=== PATIENT | female | born 1995 | race Caucasian/White ===

== ENCOUNTER 2018-05-15 01:04 | Observation (INO) ==
[2018-05-15 02:04] LABS: Amphetamine Screen,Urine Negative ng/mL (Cutoff=1000); Barbiturate Screen,Urine Negative ng/mL (Cutoff=200); Benzodiazepines Screen,Urine Negative ng/mL (Cutoff=200); Cannabinoid Screen,Urine Negative ng/mL (Cutoff = 50); Cocaine Screen,Urine Negative ng/mL (Cutoff= 300); Opiate Screen,Urine Negative ng/mL (Cutoff=300); Phencyclidine Screen,Urine Negative ng/mL (Cutoff=25)
[2018-05-15] MEDS ORDERED: Famotidine 20 MG TABLET PO ONE (04:17)
--- NOTE | 2018-05-19 10:06 | OB/GYN Progress Note ---
Date of Encounter: 05/15/18 Time of Encounter: 02:00 - Assessment and Plan (1) Fall (on) (from) other stairs and steps, initial encounter Status: Acute extended monitoring Discharge home with labor precautions Follow up with routine care and prn (2) 38 weeks gestation of Status: Acute (3) NST (non-stress test) reactive Status: Acute Subjective - Subjective Principal diagnosis: Fall Interval history: Patient is 38 weeks. Positive blood type. Fell down the stairs on her bottom and denies hitting her abdomen. She denies cramping, leaking of fluid, vaginal bleeding, contractions, and pain. Objective - Exam FHR: auscultation normal, category 1 (130 baseline no contractions reactive NST) Abdomen: Present: soft, gravid Uterus: Present: normal. Absent: firm
== END 2018-05-15 05:45 | disposition home or self-care (01) ==
LOC: 1NENULAB
PROVIDERS: ADMIT Advanced Practice Midwife; ATTEND Advanced Practice Midwife

== ENCOUNTER 2018-06-02 05:57 | Inpatient (IN) ==
[2018-06-02] MEDS ORDERED: Naloxone 0.4 MG/ML INJ IVP PRN (06:06)
[2018-06-02] MEDS ORDERED: *HR* Nalbuphine 10 MG/ML AMPUL IVP PRN (06:06)
[2018-06-02] MEDS ORDERED: Famotidine 20 MG/2 ML VIAL IVP PRN (06:06)
[2018-06-02] MEDS ORDERED: Penicillin G Potassium 5,000,000 UNIT in 0.9 % Sodium Chloride Mini Bag 100 ML IVPB ONE (06:08)
[2018-06-02] MEDS ORDERED: Oxytocin 20 units/ LR 1000 mL 20 UNIT/1,000 ML BAG IVC SCH (06:15)
[2018-06-02] MEDS ORDERED: Ringers Solution, Lactated 1,000 ML IVC SCH (06:15)
[2018-06-02 06:28] LABS: Basophils % 0.3 %; Eosinophils # 0.1 K/mcL (0.0-0.6); Eosinophils % 0.6 %; Hematocrit 36.5 % (35.3-44.9); Hemoglobin 12.2 g/dL (11.5-15.4); Immature Granulocytes % 0.6 % (0-4); Lymphocytes # 2.8 K/mcL (0.6-4.6); Lymphocytes % 25.4 %; Mean Corpuscular HGB Conc 33.4 g/dL (31.6-35.5); Mean Corpuscular Hemoglobin 29.3 pg (28.0-33.3); Mean Corpuscular Volume 87.5 fL (83.0-100.0); Mean Platelet Volume 10.7 fL (9.4-12.4); Monocytes # 0.8 K/mcL (0.0-1.3); Neutrophils # 7.2 K/mcL (1.6-8.9); Platelet Count 175 K/mcL (140-400); Red Blood Count 4.17 M/mcL (3.82-4.97); Red Cell Distribution Width 13.1 % (11.5-14.5); Segmented Neutrophils % 66.1 %
[2018-06-02] MEDS ORDERED: miSOPROStol 25 MCG TABLET PO ONE (06:31)
[2018-06-02 06:33] LABS: Amphetamine Screen,Urine Negative ng/mL (Cutoff=1000); Barbiturate Screen,Urine Negative ng/mL (Cutoff=200); Benzodiazepines Screen,Urine Negative ng/mL (Cutoff=300)
[2018-06-02 06:34] LABS: Cannabinoid Screen,Urine Negative ng/mL (Cutoff = 50); Cocaine Screen,Urine Negative ng/mL (Cutoff= 300); Opiate Screen,Urine Negative ng/mL (Cutoff=300); Phencyclidine Screen,Urine Negative ng/mL (Cutoff=25)
--- NOTE | 2018-06-02 09:07 | OB/GYN History & Physical ---
Date of Encounter: 06/02/18 Time of Encounter: 08:30 Assessment and Plan (1) 40 weeks gestation of Current visit: Yes Status: Acute (2) Primiparity Current visit: Yes Status: Acute Qualifiers: Trimester: third trimester Qualified Code(s): Z34.03 - Encounter for supervision of normal first , third trimester (3) Elective induction of labor planned Current visit: Yes Status: Acute She received cytotec at 0600. Attempt to put in transcervical ramirez was unsuccessful. Will wait 4 hours and begin pitocin if not april adequately from the PO cytotec. History of Present Illness Chief complaint: Induction of labor HPI: Ms. Cantu is a 23 year old female G 1 at 40 4/7 weeks presents to labor and delivery for induction of labor for postdates. She has not had any contractions, vaginal bleeding, or leaking fluid. She reports good movement. Her has been uncomplicated. Past Med Surg Social Fam HX - Past Medical History Source: patient Medical history: non-contributory Psychiatric history: anxiety - Past Surgical History Surgical History: non-contributory Additional surgical history: wisdom teeth - Social History Smoking Status: Never smoker Smokeless Tobacco Status: No Alcohol use: none Drug use: none Occupational status: student - Family History Father Family Member Ethnicity: Non- Living Status: Still Living Hx Family Cardiac Disorders: No Hx Family Respiratory Disorders: No Hx Family Cancer: No Hx Family Medical Disorders: Yes (dementia) Obstetrical History - Pregnancies : 1 Medications and Allergies Famotidine [Pepcid] 1 tab PO BID 05/15/18 [History] Vits96/Iron Fum/Folic [ Tablet] 1 tab PO DAILY 05/15/18 [History] Allergy/AdvReac Type Severity Reaction Status Date / Time Sulfa (Sulfonamide AdvReac Hives Verified 06/02/18 06:03 Antibiotics) Review of System OB All systems PM: reviewed and no additional remarkable complaints except as stated - Constitutional Constitutional ROS IM: no chills, no fever(s), no weight loss - Gastrointestinal Gastrointestinal: cramping, no abdominal pain, no nausea, no vomiting - Menstruation Menstruation: amenorrhea, no currently menstrual Exam - Constitutional Constitutional: well developed, well nourished, no acute distress, average body habitus - HEENT HEENT: Mucus Membranes Moist - Lungs Respiratory exam: CTAB - Cardiovascular Cardiovascular exam: RRR - Abdomen Abdomen: Present: bowel sounds normal, gravid, non tender - Vulva Vulva: bilateral: normal - Vagina Vagina: Present: normal moisture, discharge - Cervix Dilation: 1 Effacement: 75 Station: -3 - Anus/Rectum Anus/Rectum: Present: normal perianal skin Results Result Diagrams: 06/02/18 06:14 All other labs normal. US - abdomen: image reviewed (3429 gm on 05/25 with adequate fluid) - VTE Reasons for not Prescribing Prophylaxis: Treatment not Indicated - Low risk for VTE
[2018-06-02] MEDS: Penicillin G Potassium 2,500,000 UNIT in 0.9 % Sodium Chloride 100 ML IVPB SCH ×4 (10:16→22:49)
--- NOTE | 2018-06-02 13:09 | OB Labor Progress Note ---
Date of Encounter: 06/02/18 Time of Encounter: 13:03 Labor Progress Note - Subjective Subjective: Patient seen and examined. She denies any concerns or complaints right now. She is having some back pain. - Cervix Cervix: 1.5/80/-3 - Heart Tones Heart Tones: category 1 - [place]: infrequent contractions, pitocin increased to 4 milliunits/minute - Plan Plan: Continue to increase Pitocin to achieve adequate labor
--- NOTE | 2018-06-02 18:51 | Anesthesia Evaluation PreOp ---
Date of Encounter: 06/02/18 Time of Encounter: 18:49 - Past History Planned Operation: justin Cardiac History: Denies any Significant Hx Pulmonary History: Denies Any Significant HX EXCEPTIONAL STUDENT EDUCATION AIDE History: Denies Any Significant HX Other Medical History: GERD Anesthesia History: No Prior Anesthetic Complications, Past Anesthesia (ear) : Yes Test: Positive Alcohol Use: none Drug use: none Medications and Allergies Famotidine [Pepcid] 1 tab PO BID 05/15/18 [History] Vits96/Iron Fum/Folic [ Tablet] 1 tab PO DAILY 05/15/18 [History] Allergy/AdvReac Type Severity Reaction Status Date / Time Sulfa (Sulfonamide AdvReac Hives Verified 06/02/18 06:03 Antibiotics) - Meds/Allergy Pre-op Review Medications Reviewed: Yes Allergies Reviewed: Yes Beta Blockers on Current Med List: No Anesthesia Results - Labs 06/02/18 06:14 Anesthesia Exam 111/64 88 fht 139 Height: 5'2" Weight: 91 k NPO (# of Hours): 2 Pain Scale: 4 Pain Scale Used: Numeric (1 - 10) - HEENT Mallampati: II Teeth: Normal Oral Opening: Greater than 3 - EXCEPTIONAL STUDENT EDUCATION AIDE LOC: Oriented EXCEPTIONAL STUDENT EDUCATION AIDE Motor: Normal RUE, Normal LUE, Normal RLE, Normal LLE, Normal Face EXCEPTIONAL STUDENT EDUCATION AIDE Sensory: Normal: RUE, LUE, RLE, LLE, Face - Cardiac Rhythm: Regular Murmur: None - Pulmonary Breath Sounds: bilateral Clear Respiratory Effort: Symmetrical Anesthesia Assess/Plan ASA Score: 2 Level of consciousness: Cooperative Anesthetic Plan: Epidural Autologous Blood: No Monitoring Plan: Standard Monitors Recovery Plan: Other (risks discussed questions answered, consented)
[2018-06-02] MEDS ORDERED: *HR* FentaNYL (PF) 100 MCG/2 ML VIAL EP ONE (18:52)
[2018-06-02] MEDS ORDERED: Lidocaine -MPF 2% 5 ML VIAL ONE (18:54)
[2018-06-02] MEDS ORDERED: *HR* FentaNYL (PF) 100 MCG/2 ML VIAL ONE (18:54)
[2018-06-02] MEDS ORDERED: Epidural Premix (fent/bupiv) 110 ML EP SCH (19:00)
--- NOTE | 2018-06-02 19:43 | OB Labor Progress Note ---
Date of Encounter: 06/02/18 Time of Encounter: 19:00 Labor Progress Note - Subjective Subjective: Patient denies any complaints. She is a little more uncomfortable with contractions. - Cervix Cervix: 2/70/-3 - Heart Tones Heart Tones: category 1 - [place]: q 2 minutes - Interventions Interventions: AROM with clear fluid. IUPC placed without difficulty. - Plan Plan: Continue pitocin induction
--- NOTE | 2018-06-02 20:56 | Anesthesia Procedures ---
Addendum entered and electronically signed by Elian Avery CRNA 06/04/18 03:07: labor epidural changed to surgical at 0115 Original Note: Date of Encounter: 06/02/18 Time of Encounter: 20:54 Procedures: Anesthesia - Epidural/Spinal Patient ID/Chart reviewed: Yes Patient examined: Yes OB Eval: Gestational age: 40 OB Eval: : 1 OB Eval: Hx Para: 0 OB Eval: Dilated at (cm): 3 OB Eval: Contractions: Non-stressed pattern Consent Obtained: Yes Supplemental Oxygen: None/Room Air Site Prep: Aseptic Technique, Sterile prep and drape, Povidone-Iodine 1% Patient position: upright Local Anesthetic: Lidocaine 1% Amount of Local Anesthetic used: 3 Touhy Needle Gauge: 18 Touhy Needle Depth (cm): 8 Catheter Depth at Skin (cm): 20 Test Dose (1.5% Lido + Epi): Volume given (mls): 3 Test Dose Result: Negative Loading Dose: Fentanyl (mcg): 100 Loading Dose: Other: rop 0.2%10 cc Loading Dose Administered: Thru Touhy Needle Infusion Med: 0.125% Bupivacaine w/ 2 mcg/ml Fentanyl Infusion Rate (mls/hr): 15 (pcea 5cc q30") Catheter Secured in Place: Tegaderm Interspace Used: L2-L3 Loss of Resistance (SUZI): Yes Blood: No CSF: No Paresthesia: No Procedure: aseptic, feliciano well, VSS, effective Vitals + FHT's: 123/76 88 fht 144
--- NOTE | 2018-06-02 22:31 | OB Labor Progress Note ---
Date of Encounter: 06/02/18 Time of Encounter: 22:24 Labor Progress Note - Interventions Interventions: I was called and notified that pitocin was discontinued for "late and early" decelerations. I have reviewed the strip and patient has moderate variablity with early decelerations. I have instructed nursing staff to restart pitocin with a new bag at 2 mUnits/minute with the external toco in place. - Plan Plan: With moderate variability and spontaneous accelerations, restart the pitocin after 30 minute rest
[2018-06-03] MEDS ORDERED: Famotidine 20 MG TABLET PO SCH (00:30)
[2018-06-03] MEDS: Penicillin G Potassium 2,500,000 UNIT in 0.9 % Sodium Chloride 100 ML IVPB SCH ×4 (02:57→15:09)
[2018-06-03] MEDS ORDERED: Ondansetron 4 MG/2 ML VIAL IVP SCH (06:00)
[2018-06-03] MEDS ORDERED: *HR* Ropivacaine/PF 0.2% 20 ML VIAL ONE (08:22)
--- NOTE | 2018-06-03 09:28 | OB Labor Progress Note ---
Date of Encounter: 06/03/18 Time of Encounter: 09:26 Labor Progress Note - Subjective Subjective: Patient reports low back pain. - Cervix Cervix: 6/100/+1 - Heart Tones Heart Tones: 125 bpm moderate variability +15x15 accels no decels noted. Cat. 1 tracing - [place]: 3-4 min apart - Interventions Interventions: SVE, New IUPC placed without difficulty. Patient tolerated well. - Plan Plan: Continue labor management Dr. Weber updated on labor status.
--- NOTE | 2018-06-03 13:15 | OB Labor Progress Note ---
Date of Encounter: 06/03/18 Time of Encounter: 13:12 Labor Progress Note - Subjective Subjective: Patient resting in bed. - Cervix Cervix: 6.5/100/-1 - Heart Tones Heart Tones: 125 bpm moderate variability +15x15 accels noted. - [place]: 3-3.5 min apart - Interventions Interventions: SVE, Patient repositioned. Pitocin increased at this time to [address] Weber updated on SVE and EFM - Plan Plan: Continue labor management
--- NOTE | 2018-06-03 14:17 | Event Note ---
Date of Encounter: 06/03/18 Time of Encounter: 14:20 At bedside to evaluate patient for failed IOL. AROM'd yesterday evening, prior checks noted to have caput. Concern for inability to adequate achieve labor given IV pitocin protocol and not being able to adequately keep on the pitocin. SVE performed, /-1. Hard anterior lip, baby appears to be in the OP position. This is a change from her prior cervical check. Will continue with IV pitocin as able and attempt to rotate the baby once completely dilated. RN and CNM at bedside regarding the above. Peanut ball to be used with patient for rotation. MD RAMIREZ
[2018-06-03] MEDS ORDERED: *HR* Ropivacaine/PF 0.5% 20 ML VIAL ONE (19:27)
[2018-06-03] MEDS ORDERED: Simethicone 80 MG TAB.CHEW PO PRN (20:25)
[2018-06-03] MEDS ORDERED: Acetaminophen 325 MG TABLET PO ONE (22:04)
--- NOTE | 2018-06-03 23:59 | OB Labor Progress Note ---
Date of Encounter: 06/03/18 Time of Encounter: 16:20 Labor Progress Note - Subjective Subjective: Patient doing well. Denies pain at this time. Discussed POC with patient. Patient denies any questions or concerns. - Cervix Cervix: 8/100/0 - Heart Tones Heart Tones: 145 bpm moderate variability +15x15 accels no decels noted. Cat. 1 - [place]: 3-4 min apart - Interventions Interventions: SVE, repositioned - Plan Plan: Dr. Weber to resume care of patient due to prolonged rupture of membranes and prolonged transition phase of labor. Patient aware of potential for c/s and transfer of care to Dr. Weber.
[2018-06-04] MEDS ORDERED: Metoclopramide 10 MG/2 ML VIAL IVP STA (00:37)
[2018-06-04] MEDS ORDERED: Famotidine 20 MG/2 ML VIAL IVP ONE (00:39)
[2018-06-04] MEDS ORDERED: CeFAZolin Premix DUPLEX 2,000 MG/50 ML BAG IVPB ONE (00:39)
[2018-06-04] MEDS ORDERED: Metoclopramide 10 MG/2 ML VIAL IVP ONE (00:39)
[2018-06-04] MEDS ORDERED: Ringers Solution, Lactated 1,000 ML IVC ONE (00:39)
[2018-06-04] MEDS ORDERED: Oxytocin 20 units/ LR 1000 mL 20 UNIT/1,000 ML BAG IVC ONE (00:39)
[2018-06-04] MEDS ORDERED: Oxytocin 20 units/ LR 1000 mL 20 UNIT/1,000 ML BAG IVC SCH ×3 (00:45→05:27)
[2018-06-04] MEDS ORDERED: Ringers Solution, Lactated 1,000 ML IVC SCH ×2 (00:45→05:27)
--- NOTE | 2018-06-04 00:45 | Event Note ---
Date of Encounter: 06/04/18 Time of Encounter: 00:41 At bedside to evaluate patient for proceed toward . Attempted to rotate from direct OP position after confirmation of position by ultrasound. rotated to LOT. Cervix unchanged after rotation x1 hr. Rescanned and patient back to direct OP. Ruptured for >24hr. No cervical change for over three cervical check(S). Knot at anterior lip still appreciated. Discussed risks of delivery, and also discussed the appropriate indication for primary LTCS. Discussed with asynclitic presentation. Consent signed with patient. Will proceed with primary LTCS. MD DENIS
[2018-06-04] MEDS ORDERED: Lidocaine/EPI 1:200k 2% PF 20 ML VIAL ONE (00:55)
[2018-06-04] MEDS ORDERED: *HR* FentaNYL (PF) 100 MCG/2 ML VIAL ONE (00:55)
[2018-06-04] MEDS ORDERED: Ringers Solution, Lactated 1,000 ML ONE (00:56)
[2018-06-04] MEDS ORDERED: *HR* Oxytocin 10 UNIT/ML VIAL IM ONE ×2 (01:04→05:27)
[2018-06-04] MEDS ORDERED: *HR* Phenylephrine 10 MG/ML VIAL ONE (01:06)
[2018-06-04] MEDS ORDERED: Ondansetron 4 MG/2 ML VIAL ONE (01:54)
[2018-06-04] MEDS ORDERED: *HR* Morphine Sulfate/PF 10 MG/10 ML AMPUL ONE (01:58)
--- NOTE | 2018-06-04 02:58 | OB/GYN Procedure Note ---
Section - Date of procedure: 06/04/18 Preop diagnosis: arrest of descent, other malpresentation Post-op diagnosis: same Procedure: section, primary low transverse Surgeon: Heike Coffey Quantitated Blood Loss: 600 Was there an dental chairside assistant present: No Anesthesia Type: Epidural section complications: none Disposition: L&D Recovery Room Specimens: Placenta, Cord blood - Narrative Narrative: OPERATIVE REPORT DATE: 06/04/2018 PROCEDURE: PRIMARY LOW TRANSVERSE DELIVERY PREOPERATIVE DIAGNOSIS: FAILED INDUCTION OF LABOR AT TERM MALPRESENTATION: OCCIPUT POSTERIOR ARREST OF DECENT EBL: 600ML POSTOPERATIVE DIAGNOSIS: SAME SURGEON: HEIKE COFFEY MD 23yo at 40+6wks who presented for scheduled IOL at term. Uncomplicated . Patient had a prolonged labor induction, beginning 06/03 PM. The patient was augmented with misoprostol, ramirez, IV pitocin, AROM. Her labor was complicated by intermittent impediment of the IV pitocin secondary to NRFWB. The patient continued to make cervical change until the PM of 06/04. The patient stalled over 6hr period, as baby was found to be in the direct OP position at 9CM with a thickened anterior lip. Attempt at rotation was unsuccessful. The patient was consented for a primary low transverse delivery. Risks including but not limited to blood loss, injury to bowel and bladder, and hysterectomy were discussed. The patient consented fully to the procedure. The patient was then taken to the OR where spinal anesthesia was found to be adequate. She was then draped in the usual sterile fashion. Time out was performed and the team confirmed the diagnosis, indication for procedure, and patient information. A pfannenstiel skin incision was then made and carried down to the level of the fascia. We incised/scored the midline of the fascia and extended the fascia incision laterally using curved dinh scissors. Kerwin clamps were then used to tent the fascia inferiorly and superiorly, as the rectofascial plane was . We then bluntly entered the abdomen and peritoneal fluid was appreciated. The bladder blade was then placed showing adequate visibility of the lower uterine segment. The bladder reflection was appreciated and a bladder flap was then created. A hysterotomy was then made superiorlY to the flap, making note of the station being ~0. Infant was found to be in the vertex presentation with an appreciable about of caput. Vaginal hand was required to assist in bringing the head to the level of the hysterotomy. Once the occiput was brought to the lower uterine segment, the fetus rotated having a facial presentation at the level of the hysterotomy. A vacuum was called for (Kiwi) and a RIGHT maylard incision was made along the rectus muscle. One pop off was performed, as the second placement allowed for delivery with adequate fundal pressure. The was stunned, as the cord was immediately clamped and cut and handed to the warmer. We then turned our attention to the uterus were there were a ppreciable extensions bilaterally along the angles of the hysterotomy. Using 0- vicryl, we repaired the lower uterine segment hysterotomy. We did require multiple midline figure of eight sutures to ensure adequate hemostasis. Urine was confirmed to be yellow/clear by anesthesia at this time. We then returned the uterus to the abdomen and again, we appreciated hemostasis. We prophylactically used Tom for further assurance for hemostasis. Bilateral abdominal gutters were cleared with lap sponges. We then examined the underside of the superior and inferior fascial edges before closing the fascia using 0-vicryl. Fascia was closed in a running locked fashion. We irrigated the subcutaneous tissue and closed the subcutaneous fat with plain gut simple interrupted sutures. Skin was closed using 4-0 vicryl in the running fashion. Hemostasis was appreciated. Sterri strips, telpha and tegaderm was then used as her dressing. Counts were correct x3. OF NOTE: There were bilateral uterine extension(S) appreciated due to the station and size. measured 8#12oz, and was in the occiput posterior position. Repair was uncomplicated as there were no cervical extension(s). MD DENIS
[2018-06-04] MEDS ORDERED: *HR* Promethazine 25 MG/ML VIAL IVP PRN (02:59)
[2018-06-04] MEDS ORDERED: *HR* HYDROmorphone (PF) 1 MG/ML SYRINGE IVP PRN ×3 (02:59→05:27)
[2018-06-04] MEDS ORDERED: Acetaminophen IV 1,000 MG/100 ML INFUS..BTL IVPB ONE (02:59)
[2018-06-04] MEDS ORDERED: *HR* Meperidine 25 MG/ML SYRINGE IVP PRN (02:59)
--- NOTE | 2018-06-04 03:07 | Anesthesia Evaluation Post Op ---
Date of Encounter: 06/04/18 Time of Encounter: 03:02 - Vital Signs Vital Signs: vss, temp elevated team aware. - Airway Airway: Non-obstructed - Mental Status Mental Status: Alert & Oriented, Answers Appropriately - Pain Pain Scale used: Hairston-Harley (Faces) - Nausea Vomiting Nausea Vomiting: Not Present - Hydration Hydration: Hamilton catheter - Discharge PostOp Status: Transfer Patient to floor
[2018-06-04] MEDS ORDERED: Sennosides 8.6 MG TABLET PO PRN (05:27)
[2018-06-04] MEDS ORDERED: Simethicone 80 MG TAB.CHEW PO PRN (05:27)
[2018-06-04] MEDS ORDERED: Metoclopramide 10 MG/2 ML VIAL IVP PRN (05:27)
[2018-06-04] MEDS ORDERED: Ondansetron 4 MG/2 ML VIAL IVP PRN (05:27)
[2018-06-04] MEDS ORDERED: Acetaminophen 325 MG TABLET PO PRN (05:27)
[2018-06-04] MEDS: Famotidine 20 MG TABLET PO SCH ×2 (08:39→16:20)
[2018-06-04] MEDS: Prenatal Vit/FA 1 EACH TABLET PO SCH (08:39)
[2018-06-04] MEDS ORDERED: Prenatal Vit/FA 1 EACH TABLET PO SCH (09:00)
[2018-06-04] MEDS: Ibuprofen 600 MG TABLET PO PRN ×2 (11:24→18:31)
[2018-06-04] MEDS ORDERED: Gentamicin 90 MG in 0.9 % Sodium Chloride 100 ML IVPB ONE (13:21)
[2018-06-04] MEDS: Clindamycin 600 MG/50 ML 600 MG/50 ML IV.SOLN IVPB SCH ×2 (15:39→22:50)
[2018-06-04] MEDS: *HR* OxyCODONE/APAP 5/325 TABLET PO PRN (21:41)
[2018-06-05] MEDS: Ibuprofen 600 MG TABLET PO PRN ×4 (00:40→20:34)
[2018-06-05] MEDS: *HR* OxyCODONE/APAP 5/325 TABLET PO PRN (04:36)
[2018-06-05 04:53] LABS: Basophils % 0.1 %; Eosinophils % 0.1 %; Hematocrit 30.1 % (35.3-44.9); Immature Granulocytes % 0.8 % (0-4); Lymphocytes # 1.3 K/mcL (0.6-4.6); Lymphocytes % 7.4 %; Mean Corpuscular HGB Conc 33.9 g/dL (31.6-35.5); Mean Corpuscular Hemoglobin 29.3 pg (28.0-33.3); Mean Corpuscular Volume 86.5 fL (83.0-100.0); Mean Platelet Volume 10.5 fL (9.4-12.4); Monocytes % 5.5 %; Neutrophils # 14.9 K/mcL (1.6-8.9); Platelet Count 165 K/mcL (140-400); Red Blood Count 3.48 M/mcL (3.82-4.97); Red Cell Distribution Width 13.4 % (11.5-14.5); Segmented Neutrophils % 86.1 %
[2018-06-05 05:05] LABS: Hemoglobin 10.2 g/dL (11.5-15.4)
[2018-06-05] MEDS: Clindamycin 600 MG/50 ML 600 MG/50 ML IV.SOLN IVPB SCH ×3 (07:02→22:30)
[2018-06-05] MEDS: Famotidine 20 MG TABLET PO SCH ×2 (07:03→15:37)
--- NOTE | 2018-06-05 08:40 | OB/GYN Progress Note ---
Date of Encounter: 06/05/18 Time of Encounter: 08:39 - Assessment and Plan (1) delivery delivered Current Visit: Yes Status: Acute Continue routine / postop care Anticipate discharge home tomorrow Subjective - Subjective Principal diagnosis: section Interval history: S/P delivery day 1 Pain well controlled Lochia light without clots VSS Tolerating regular diet Passing flatus and urinating without difficulty Discharge home tomorrow Patient reports: appetite normal, voiding normally, pain well controlled, ambulating normally [place]: doing well, nursing well Objective - Vital Signs Latest vital signs: Vital Signs Temp Pulse Resp BP Pulse Ox 06/05/18 08:33 98.8 F 115 14 109/69 96 06/05/18 03:45 98.4 F 105 20 108/72 97 06/05/18 01:13 98.8 F 106 20 120/73 96 06/04/18 23:06 99.4 F 06/04/18 21:20 99.9 F H 106 20 104/68 98 06/04/18 18:03 97.9 F 93 20 112/75 97 06/04/18 15:50 98.4 F 102 20 110/78 95 06/04/18 14:00 99.4 F 110 17 98/60 95 06/04/18 13:00 101.5 F H 119 20 123/77 95 06/04/18 11:20 100.2 F H 108 20 113/73 95 Intake and Output 06/04/18 06/05/18 06/05/18 23:59 07:59 15:59 Intake Total 740 / 740 Output Total 700 / 700 Balance 40 / 40 Intake: IV Fluids 100 / 100 Cleocin Premix 600 MG/50 ML 600 100 / 100 mg In 50 ml @ 50 mls/hr IVPB Q8H [facility] Rx#:[id number] Oral 640 / 640 Output: Urine 700 / 700 Other: Meal Dinner Percent of Meal Consumed 80% - Exam Lungs: bilateral: normal Chest: Normal S1, Normal S2 Extremities: Present: normal Abdomen: Present: normal appearance, soft, gravid Incision: Present: normal, dry (dressing c/d/i), intact Uterus: Present: normal, firm Fundal Height: 0 (@ U) - Labs Labs: Laboratory Results - last 24 hr 06/05/18 04:35 WBC 17.3 H D RBC 3.48 L Hgb 10.2 L D Hct 30.1 L MCV 86.5 MCH 29.3 MCHC 33.9 RDW 13.4 Plt Count 165 MPV 10.5 Immature Gran % 0.8 Seg Neutrophils % 86.1 Lymphocytes % 7.4 Monocytes % 5.5 Eosinophils % 0.1 Basophils % 0.1 Neutrophils # 14.9 H Lymphocytes # 1.3 Monocytes # 1.0 Eosinophils # 0.0 Basophils # 0.0
[2018-06-05] MEDS: Prenatal Vit/FA 1 EACH TABLET PO SCH (11:08)
[2018-06-06] MEDS: Ibuprofen 600 MG TABLET PO PRN ×2 (03:25→09:38)
[2018-06-06] MEDS: Clindamycin 600 MG/50 ML 600 MG/50 ML IV.SOLN IVPB SCH (06:26)
[2018-06-06 06:43] LABS: Basophils % 0.3 %; Eosinophils # 0.2 K/mcL (0.0-0.6); Eosinophils % 1.1 %; Hematocrit 30.4 % (35.3-44.9); Hemoglobin 10.2 g/dL (11.5-15.4); Immature Granulocytes % 0.5 % (0-4); Lymphocytes # 2.9 K/mcL (0.6-4.6); Mean Corpuscular HGB Conc 33.6 g/dL (31.6-35.5); Mean Corpuscular Hemoglobin 29.2 pg (28.0-33.3); Mean Corpuscular Volume 87.1 fL (83.0-100.0); Mean Platelet Volume 10.4 fL (9.4-12.4); Monocytes # 0.9 K/mcL (0.0-1.3); Monocytes % 5.6 %; Neutrophils # 11.2 K/mcL (1.6-8.9); Platelet Count 220 K/mcL (140-400); Red Blood Count 3.49 M/mcL (3.82-4.97); Red Cell Distribution Width 13.4 % (11.5-14.5); Segmented Neutrophils % 73.5 %
[2018-06-06] MEDS: Famotidine 20 MG TABLET PO SCH (07:13)
[2018-06-06] MEDS: Prenatal Vit/FA 1 EACH TABLET PO SCH (07:13)
[2018-06-06 07:20] VITALS: BP 99/52
--- NOTE | 2018-06-06 09:53 | Discharge Summary ---
Date of Encounter: 06/06/18 Time of Encounter: 09:51 - Discharge Diagnosis (1) Breast feeding status of mother Priority: Secondary Status: Acute Comments: support prn (2) delivery delivered Priority: Primary Status: Acute Comments: Continue routine postop/ care discharge home today follow up with Dr. Weber in 2 weeks for incision check Follow up with Dr. New in 6 weeks - Discharge Medications Prescriptions: OxyCODONE/APAP 5/325 [Percocet 5/325 MG] 1 each PO Q4HR PRN 5 Days #28 tablet PRN Reason: Moderate pain 4-6 Ibuprofen [Motrin] 600 mg PO Q6HR PRN #60 tablet PRN Reason: Cramping Breast Pump [BREAST PUMP] 1 each .ROUTE AD #1 each Cephalexin [Keflex] 500 mg PO BID 7 Days #14 capsule Docusate [Colace] 100 mg PO BID #60 capsule Home Medications: Breast Pump [BREAST PUMP] 1 each .ROUTE AD #1 each 06/06/18 [Rx] Cephalexin [Keflex] 500 mg PO BID 7 Days #14 capsule 06/06/18 [Rx] Docusate [Colace] 100 mg PO BID #60 capsule 06/06/18 [Rx] Ibuprofen [Motrin] 600 mg PO Q6HR PRN #60 tablet 06/06/18 [Rx] OxyCODONE/APAP 5/325 [Percocet 5/325 MG] 1 each PO Q4HR PRN 5 Days #28 tablet 06/06/18 [Rx] Vit/FA 1 each PO DAILY tablet 06/06/18 [Rx] Allergies/Adverse Reactions: Allergy/AdvReac Type Severity Reaction Status Date / Time Sulfa (Sulfonamide AdvReac Hives Verified 06/02/18 06:03 Antibiotics) Data Procedures and tests throughout hospitalization: Laboratory Tests 06/02/18 06/02/18 06/05/18 06:14 06:14 04:35 WBC 10.8 17.3 H D RBC 4.17 3.48 L Hgb 12.2 10.2 L D Hct 36.5 30.1 L MCV 87.5 86.5 MCH 29.3 29.3 MCHC 33.4 33.9 RDW 13.1 13.4 Plt Count 175 165 MPV 10.7 10.5 Immature Gran % 0.6 0.8 Seg Neutrophils % 66.1 86.1 Lymphocytes % 25.4 7.4 Monocytes % 7.0 5.5 Eosinophils % 0.6 0.1 Basophils % 0.3 0.1 Neutrophils # 7.2 14.9 H Lymphocytes # 2.8 1.3 Monocytes # 0.8 1.0 Eosinophils # 0.1 0.0 Basophils # 0.0 0.0 Urine Opiates Screen Negative Ur Barbiturates Screen Negative Ur Phencyclidine Scrn Negative Ur Amphetamines Screen Negative U Benzodiazepines Scrn Negative Urine Cocaine Screen Negative U Marijuana (THC) Screen Negative Ur Drug Screen Interp See Below 06/06/18 06:25 WBC 15.2 H RBC 3.49 L Hgb 10.2 L Hct 30.4 L MCV 87.1 MCH 29.2 MCHC 33.6 RDW 13.4 Plt Count 220 MPV 10.4 Immature Gran % 0.5 Seg Neutrophils % 73.5 Lymphocytes % 19.0 Monocytes % 5.6 Eosinophils % 1.1 Basophils % 0.3 Neutrophils # 11.2 H Lymphocytes # 2.9 Monocytes # 0.9 Eosinophils # 0.2 Basophils # 0.0 Urine Opiates Screen Ur Barbiturates Screen Ur Phencyclidine Scrn Ur Amphetamines Screen U Benzodiazepines Scrn Urine Cocaine Screen U Marijuana (THC) Screen Ur Drug Screen Interp Labs on day of discharge: Labs from last 24 hours 06/06/18 06:25 WBC 15.2 H RBC 3.49 L Hgb 10.2 L Hct 30.4 L MCV 87.1 MCH 29.2 MCHC 33.6 RDW 13.4 Plt Count 220 MPV 10.4 Immature Gran % 0.5 Seg Neutrophils % 73.5 Lymphocytes % 19.0 Monocytes % 5.6 Eosinophils % 1.1 Basophils % 0.3 Neutrophils # 11.2 H Lymphocytes # 2.9 Monocytes # 0.9 Eosinophils # 0.2 Basophils # 0.0 Date of admission: 06/02/18 05:57 Primary care physician: PCP NONE Discharging clinician: Symone Esqueda Anticipated date of discharge: 06/06/18 - Patient Status Disposition: Home, Self-Care Condition: Good Functional capacity at discharge: independent ambulation - Discharge Instructions Follow Up With: NONE,PCP [Primary Care Provider] - Rody Weber MD [Partnered Physician] - - Diet and Activity Activity: increase activity as tolerated Diet: regular diet Hospital Course Procedures: OARRS report reviewed per ADOLFO Arce prior to discharge Reason for admission: induction of labor Delivery: section Episiotomy: none Laceration: none Other procedures: none complications: none Discharge diagnosis: IUP at term delivered [place] baby: male (breast feeding) Time Attestation: Total time spent providing and/or coordinating discharge services: Time Spent: Less than 30 minutes - VTE Reasons for not Prescribing Prophylaxis: Treatment not Indicated - Low risk for VTE Documentation of Mechanical Device: Intermittent pneumatic compression device Exam - Constitutional Vitals: Temp Pulse Resp BP Pulse Ox 97.7 F 76 16 99/52 98 06/06/18 07:19 06/06/18 07:19 06/06/18 07:19 06/06/18 07:19 06/06/18 07:19 General appearance IM: A&O X 3, pleasant, answers questions appropriately - Respiratory Respiratory exam: Present: CTAB - Cardiovascular Cardiovascular exam IM: Present: RRR, +S1, +S2 - GI/Abdominal GI/Abdominal exam IM: normal bowel sounds Incision: normal, dry, intact, other (steri strips and binder) - Uterine Tone: Firm Uterus Position: 2 Fingers Below Umbilicus, Midline - Extremities Exam Extremities exam IM: Present: full ROM, normal capillary refill, normal inspection - Neurological Exam Neurological exam: alert, oriented X3, reflexes normal
== END 2018-06-06 12:08 | disposition home or self-care (01) | DRG 540 ==
LOC: 1NENULAB 05:57 → 1NENUOBS 06-04 05:26
PROVIDERS: ADMIT Obstetrics & Gynecology; ATTEND Obstetrics & Gynecology